=== PATIENT | female | born 2000 | race African-American/Black ===

== ENCOUNTER 2022-03-21 14:20 | Emergency (ER) | payer SELFPAY ==
[2022-03-21] MEDS ORDERED: KETOROLAC TROMETHAMINE 30 MG/1 ML VIAL IM ONE (14:25)
[2022-03-21 14:37] VITALS: BP 122/58; PULSE 73; RESP 18; TEMP 97.8; BMI 26.4
[2022-03-21] MEDS ORDERED: KETOROLAC TROMETHAMINE 30 MG/1 ML VIAL ONE (14:45)
[2022-03-21] MEDS ORDERED: ONDANSETRON *ODT* 4 MG TABLET SL ONE (14:58)
[2022-03-21] MEDS ORDERED: ONDANSETRON *ODT* 4 MG TABLET ONE (15:00)
[2022-03-21 16:47] LABS: HCG,QUALITATIVE URINE Negative
== END 2022-03-21 16:50 | disposition home or self-care (01) ==
LOC: FER 14:20
PROC: 3E023GC Introduction of Other Therapeutic Substance into Muscle, Percutaneous Approach (ICD-10-PCS; principal; 2022-03-21)
DX: R10.2 Pelvic and perineal pain (principal); N93.9 Abnormal uterine and vaginal bleeding, unspecified
CPT/HCPCS: 76830-TC; 81003; 81015; 84703; 87086; 99284-25; Q0162